=== PATIENT | female | born 1985 | race Caucasian/White ===

== ENCOUNTER 2020-08-09 07:49 | Day surgery (SDC) | payer OTHER ==
[2020-07-31 16:04] VITALS: BMI 30.7
[2020-08-09] MEDS ORDERED: Rocuronium Bromide 10 MG/ML (10ML VIAL) ONE (10:01)
[2020-08-09] MEDS ORDERED: Lidocaine 1% PF 5 ML VIAL ONE (10:01)
[2020-08-09] MEDS ORDERED: Dexamethasone 20 MG/5 ML VIAL ONE (10:01)
[2020-08-09] MEDS ORDERED: PROPOFOL 200 MG/20 ML VIAL ONE (10:01)
[2020-08-09] MEDS ORDERED: Ondansetron PF 4 MG/2 ML Vial ONE (10:01)
[2020-08-09] MEDS ORDERED: Fentanyl 100 MCG/2 ML VIAL ONE ×3 (10:10→11:41)
[2020-08-09] MEDS ORDERED: SUGAMMADEX SODIUM 200 MG/2 ML VIAL ONE (10:10)
[2020-08-09] MEDS ORDERED: Hydrocodone-Acetamin 15 ML UDCUP ONE ×2 (12:47→12:48)
--- NOTE | 2020-08-10 15:32 | OP ---
DATE OF PROCEDURE: 08/09/2020 PREOPERATIVE DIAGNOSES: Chronic tonsillitis, obstructive tonsillar hypertrophy. POSTOPERATIVE DIAGNOSES: Chronic tonsillitis, obstructive tonsillar hypertrophy. PROCEDURE PERFORMED: Tonsillectomy over 12 years of age. DESCRIPTION OF PROCEDURE: After consent was obtained, the patient was identified, brought to the operating room, and placed on the operating table in the supine position. General endotracheal anesthesia and intravenous access were obtained and we proceeded with positioning the patient for oropharyngeal surgery. Oropharyngeal exposure was obtained with a Ridge-Perry mouth gag after a head drape was placed and secured with a towel clip. The Ridge-Perry mouth gag was then suspended from the Osorio tray and palatal elevation was achieved with a red rubber catheter. The right tonsil was addressed first. We used a curved Allis to grasp the tonsil and retract it medially as an anterior pillar incision was made with a #12 blade. The retrotonsillar fascial plane was then established and blunt dissection was performed with the suction cautery. Blood vessels were anticipated, identified, and cauterized as they were encountered. Ultimately, dissection was carried to the posterior tonsillar pillar mucosa which was incised hemostatically, as well as the base of tongue connection. The tonsil was then passed off as a specimen and bleeding points within the tonsillar bed were cauterized under direct visualization. We subsequently turned our attention to the contralateral side, where using a similar technique, a near identical procedure was performed. Again, the tonsil was grasped and retracted medially with a curved Allis as an anterior pillar incision was made with a #12 blade. The retrotonsillar fascial plane was established and while the anterior pillar was retracted medially, the hemostatic blunt dissection of the tonsil with a suction cautery was performed with blood vessels anticipated, identified, and cauterized as they were encountered. Again, dissection continued to the base of tongue and posterior tonsillar pillar mucosa which was incised in a hemostatic fashion. The tonsillar beds were then carefully inspected and bleeding points were identified and cauterized with a suction cautery. After this portion of the procedure, hemostasis was completely obtained. The patient's oral cavity was copiously irrigated with iced saline and subsequently suctioned. We then used the red rubber catheter to suction the gastric contents and the patient was subsequently aroused, awakened, and extubated without difficulty and transported to the recovery room in stable condition. There were no complications. FINDINGS: The patient had very cryptic vascular tonsils with chronic inflammatory changes. Job ID: [id number]
== END 2020-08-09 13:50 | disposition home or self-care (01) ==
LOC: SDC 07:49
PROVIDERS: ATTEND Specialist
PROC: 0CTPXZZ Resection of Tonsils, External Approach (ICD-10-PCS; principal; 2020-08-09)
DX: J35.01 Chronic tonsillitis (principal); F41.9 Anxiety disorder, unspecified; F32.9 Major depressive disorder, single episode, unspecified; Z79.899 Other long term (current) drug therapy; Z91.013 Allergy to seafood
CPT/HCPCS: 36415; 85014; 88304; J1100; J2405; J2704; J3010

== ENCOUNTER 2024-08-16 11:41 | Emergency (ER) | payer OTHER ==
[~2024-08-16 11:41] MED LIST: Iopamidol-370 76% 500 ML MDV (1 ML CHARGE) ONE
[2024-08-16 12:03] LABS: #Basophils 0.08 10x3/uL (0.0-0.2); %Basophils 1.6 % (0.0-1.0); %Eosinophils 6.9 % (0.0-10.0); %Lymphocytes 38.2 % (21.0-51.0); %Monocytes 10.2 % (0.0-10.0); %Neutrophils 42.9 % (42.0-75.0); Hematocrit 36.5 % (36.0-47.0); Hemoglobin 12.1 g/dL (12.0-16.0); Mean Corpuscular HGB CONC 33.2 g/dL (32.0-36.0); Mean Corpuscular Hemoglobin 31.7 pg (27.0-31.0); Mean Corpuscular Volume 95.5 fL (78.0-98.0); Mean Platelet Volume 9.5 fL (7.4-10.4); Platelet Count 263 10x3/uL (130-400); RBC Distribution Width 12.5 % (11.5-14.5); Red Blood Cell (RBC) Count 3.82 mill/uL (4.20-5.40)
[2024-08-16] MEDS ORDERED: Morphine 4 MG/ML VIAL ONE ×2 (12:07→13:58)
[2024-08-16 12:20] LABS: BHCG - Serum Negative (NEGATIVE); Pregs Control Background? CLEAR/WHITE (CLR/WHITE); Pregs Control Bar Appear? YES (CONTROL BAR)
[2024-08-16 12:23] LABS: ALT (SGPT) 11 U/L (Less than 34); AST (SGOT) 21 U/L (11-34); Acetaminophen Less than 10 mcg/mL (Less than 10); Albumin 3.6 g/dL (3.1-4.5); Alcohol Less than 10.0 mg/dL (Less than 10); Alkaline Phosphatase 56 U/L (40-110); Anion Gap 10 mmol/L (10-20); BUN (Urea Nitrogen) 14 mg/dL (7.0-18.7); Bilirubin, Total 0.2 mg/dL (0.3-1.2); Calc. Creatinine Clearance 0 mL/min (70-130); Calcium 8.5 mg/dL (7.8-10.44); Carbon Dioxide 26 mmol/L (22-29); Chloride 109 mmol/L (98-107); Estimated GFR 103; Globulin 2.8 g/dL (2.4-3.5); Glucose 90 mg/dL (70-105); Lipase 41 U/L (8-78); Potassium 4.3 mmol/L (3.5-5.1); Protein, Total 6.4 g/dL (6.0-8.3); Salicylate Less than 8.0 mg/dL (Less than 8.0); Sodium 141 mmol/L (136-145)
[2024-08-16 12:25] LABS: Troponin I Less than 0.010 ng/mL (< 0.028)
[2024-08-16] MEDS ORDERED: Ketorolac Tromethamine 30 MG (1 mL) VIAL ONE (12:55)
== END 2024-08-16 14:41 | disposition home or self-care (01) ==
LOC: ERS 11:41
DX: R51.9 Headache, unspecified (principal); M54.2 Cervicalgia; R10.2 Pelvic and perineal pain; M53.3 Sacrococcygeal disorders, not elsewhere classified; Z55.0 Illiteracy and low-level literacy; V89.2XXA Person injured in unspecified motor-vehicle accident, traffic, initial encounter
CPT/HCPCS: 36415; 70450; 71260; 72125; 74177; 80053; 80307; 83690; 84484; 84703; 85025; 86850; 86900; 86901; 93005; 96374; 96375; 96376; J1885; J2270; Q9967